=== PATIENT | male | born 1950 | race Caucasian/White ===

== ENCOUNTER 2020-03-10 09:14 | Outpatient (CLI) | payer MEDICARE ==
--- NOTE | 2020-03-10 10:24 | MRI ---
MRI Cervical Spine WO Con History: Numbness and tingling Comparison: None. Findings: Cerebellar tonsils terminate at the foramen magnum. Cord signal is mildly increased at C3/C 4 for which is impinged. No acute fracture or malalignment. Levels are as follows: C2/C3: Mild disc desiccation and height loss. Moderate uncinate processes verge the. Is severe left a nd moderate to severe right facet arthrosis. Moderate bilateral neural foraminal narrowing. Spinal canal measures 7 mm. C3/C4: Moderate disc desiccation and height loss. Large disc osteophyte complex. Abnormal ligamentum flavum hypertrophy with cord impingement with the spinal canal measuring 4-5 mm. Severe right facet joint degenerative changes with large joint effusion and synovial cyst formation adjacent soft tissue s swelling. Small left facet joint effusion. Severe bilateral neural foraminal narrowing. C4/C5: Moderate disc desiccation and height loss. Small circumferential disc osteophyte complex. Adrienne re left and moderate to severe right hypertrophic facet arthrosis. Mild ventral CSF space effacement with the spinal canal still measuring 9 mm. Moderate to severe left and moderate right christy ral foraminal narrowing. C5/C6: Mild disc desiccation and height loss. Moderate disc osteophyte complex. Mild ventral CSF spac e effacement with the spinal canal still measuring 1 cm. Moderate to severe right and left neural foraminal narrowing. Moderate facet arthrosis. C6/C7: Moderate disc desiccation and height loss. Moderate disc osteophyte complex. Mild ventral CSF space effacement with the spinal canal still measuring 11 mm. Moderate left and mild right neural foraminal narrowing. C7/T1: Low-grade disc desiccation and height loss. No significant neural foraminal or spinal canal na rrowing. Impression: 1. 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 Urgent neurosurgical consultation advised. 2. Multilevel high-grade neural foraminal narrowing. A [employer] message was sent at 10:18 AM.
== END 2020-03-10 09:15 | disposition home or self-care (01) ==
LOC: BICMRI 09:14
PROVIDERS: ATTEND Internal Medicine
DX: M54.2 Cervicalgia (principal); R20.0 Anesthesia of skin; M48.02 Spinal stenosis, cervical region; G95.29 Other cord compression
CPT/HCPCS: 72141

== ENCOUNTER 2020-03-26 10:11 | Outpatient (CLI) | payer MEDICARE | END 2020-03-26 10:12 | disposition home or self-care (01) | LOC: BICRAD 10:11 | PROVIDERS: ATTEND Neurological Surgery | DX: M47.22 Other spondylosis with radiculopathy, cervical region (principal) | CPT/HCPCS: 72050 ==

== ENCOUNTER 2022-11-29 11:00 | Outpatient (CLI) | payer MEDICARE | END 2022-11-29 11:01 | disposition home or self-care (01) | LOC: BICMRI 11:00 | PROVIDERS: ATTEND Orthopaedic Surgery | DX: M16.0 Bilateral primary osteoarthritis of hip (principal); S73.192A Other sprain of left hip, initial encounter; M70.72 Other bursitis of hip, left hip; M43.16 Spondylolisthesis, lumbar region; M48.061 Spinal stenosis, lumbar region without neurogenic claudication; M67.98 Unspecified disorder of synovium and tendon, other site; R60.0 Localized edema | CPT/HCPCS: 70210; 72195 ==

== ENCOUNTER 2023-01-02 09:08 | Outpatient (CLI) | payer MEDICARE | END 2023-01-02 09:09 | disposition home or self-care (01) | LOC: SCSMRI 09:08 | PROVIDERS: ATTEND Specialist | DX: M51.17 Intervertebral disc disorders with radiculopathy, lumbosacral region (principal); M47.27 Other spondylosis with radiculopathy, lumbosacral region; M47.816 Spondylosis without myelopathy or radiculopathy, lumbar region; M43.17 Spondylolisthesis, lumbosacral region; M43.16 Spondylolisthesis, lumbar region; M48.07 Spinal stenosis, lumbosacral region; M48.061 Spinal stenosis, lumbar region without neurogenic claudication | CPT/HCPCS: 72148 ==